=== PATIENT | male | born 1965 | race Two or more races ===

== ENCOUNTER 2023-11-24 13:24 | Emergency (ER) | payer MEDICAID ==
[2023-11-24 14:57] LABS: BASE EXCESS VENOUS -15.2 mm/L; BICARBONATE,VENOUS 12.4 mmol/L; METHEMOGLOBIN 1.1 %; O2 SATURATION VENOUS 43.2; OXYHEMOGLOBIN 41.9 %; PCO2 VENOUS 35.8 mm/Hg; PH,VENOUS 7.164 (7.350-7.450); TOTAL HEMOGLOBIN 11.7 g/dL (13.5-18.0)
[2023-11-24 14:58] LABS: PO2 VENOUS 26.1 mm/Hg
[2023-11-24] MEDS: 50% Dextrose in Water 50 ML Syringe IVPUSH ONE ×2 (15:02→15:52)
[2023-11-24] MEDS: Sodium Chloride 0.9% 1,000 ML IV ONE (15:04)
[2023-11-24 15:12] LABS: CALCIUM 8.4 mg/dL (8.5-10.1); EST CRCL DRUG DOSING (CG) 8.94 mL/min
[2023-11-24] MEDS: Sodium Chloride 0.9% 10 ML Syringe FLUSH PRN (15:13)
[2023-11-24 15:15] LABS: ANION GAP 25.3 mmol/L (5.0-14.0); CREATININE 8.9 mg/dL (0.8-1.3); POTASSIUM,K 6.3 mmol/L (3.6-5.2)
[2023-11-24 15:42] LABS: APPEARANCE,URINE CLEAR (CLEAR); BILIRUBIN,URINE SMALL (NEGATIVE); COLOR,URINE YELLOW (YELLOW); GLUCOSE,URINE NEGATIVE (NEGATIVE); KETONES,URINE NEGATIVE (NEGATIVE); LEUKOCYTE ESTERASE,URINE NEGATIVE (NEGATIVE); NITRITE,URINE NEGATIVE (NEGATIVE); OCCULT BLOOD,URINE TRACE-INTACT (NEGATIVE); PROTEIN,URINE 30 mg/dL (NEGATIVE); UROBILINOGEN,URINE 0.2 EU/dL (0.2-1.0)
[2023-11-24 15:51] LABS: AMORPHOUS SEDIMENT,URINE FEW; BACTERIA,URINE FEW; EPITHELIAL CELLS,URINE RARE; MUCUS,URINE NOT SEEN; RBC,URINE 30-40 (0-5); WBC,URINE 0-5 (0-5)
[2023-11-24] MEDS: Dextrose 5%-0.9% NaCl 1,000 ML IV SCH (16:19)
[2023-11-24] MEDS: Calcium Chloride 10% 1 GM/10 ML Syringe IVPUSH ONE (16:59)
[2023-11-24] MEDS: Sodium Zirconium Cyclosilicate 10 GM Packet PO ONE (16:59)
[2023-11-24] MEDS: Sodium Bicarbonate 150 MEQ in Dextrose 5% in Water 1,000 ML IV ONE (17:12)
== END 2023-11-24 18:00 ==
LOC: JP.ED 13:24
DX: E87.5 Hyperkalemia (principal); E11.649 Type 2 diabetes mellitus with hypoglycemia without coma; N17.9 Acute kidney failure, unspecified; E87.20 Acidosis, unspecified; I10 Essential (primary) hypertension; Z79.84 Long term (current) use of oral hypoglycemic drugs; Z79.899 Other long term (current) drug therapy; Z88.8 Allergy status to other drugs, medicaments and biological substances
CPT/HCPCS: 36415; 51798; 80048; 81001; 82803; 82947; 83605; 93005; 96361; 96365; 96375; 96376; 99285; A9270; J3490; J7030; J7060; 93010